=== PATIENT | female | born 1990 | race Caucasian/White ===

== ENCOUNTER 2021-04-20 11:02 | Outpatient (CLI) | payer OTHER, SELFPAY ==
--- NOTE | ~2021-04-20 | XR_ITS ---
EXAMINATION: XR hysterosalpingogram DATE: 04/20/2021 14:40 PRE SCHOOL MANAGER INDICATION: Infertility TECHNIQUE: Fluoroscopy was provided for a hysterosalpingogram performed by Dr. Mercado. FINDINGS: Initial images are unremarkable. Morphology of the uterus is grossly unremarkable. There is normal intraluminal morphology of the uterus. The fallopian tubes are normal in appearance and are widely patent, with free spill into the peritoneal cavity from both sides. IMPRESSION: 1. Normal hysterosalpingogram. The uterus demonstrates normal intraluminal morphology and both fall opian tubes are patent. Reviewed, dictated and finalized at location A. SCHOOL MANAGER IMPRESSION: 1. Normal hysterosalpingogram. The uterus demonstrates normal intraluminal mo rphology and both fallopian tubes are patent.
== END 2021-04-20 11:03 | disposition home or self-care (01) ==
LOC: ANHIMG 11:06
PROVIDERS: PCP Pediatrics; Visit Provider Obstetrics & Gynecology
DX: N97.9 Female infertility, unspecified (principal)
CPT/HCPCS: 58340; 74740; Q9966

== ENCOUNTER 2022-02-12 07:29 | Inpatient (IN) | payer OTHER, SELFPAY ==
[2022-02-12] VITALS (105 sets, daily range): BP systolic 90–172; BP diastolic 58–114; PULSE 71–117; TEMP 36.4–37.2; O2SAT 97–100; BMI 32.5
--- NOTE | 2022-02-12 07:29 | LDADM ---
This patient, Lin Murphy, was admitted to Labor/Delivery/Recovery 107 on 02/12/22 at 07:29. Plans for labor, pain management and were discussed with patient. Patient/family oriented to hospital policies and general routines including ID bracelet, bed and alarms, visiting hours, pain management, procedures, bathroom and other care routines, personal items, smoking policy, room service/diet and guest tray routines, security routines, and visiting hours. Patient/Family are encouraged to report perceived risks to care and to ask questions if they do not understand what they are told or what they should do. See OBIX for further documentation.
--- NOTE | 2022-02-12 07:29 | OBADM ---
This patient, Lin Murphy, admitted to the OB room Labor/Delivery/Recovery 107 for observation. Patient/family oriented to hospital policies and general routines including ID bracelet, bed and alarms, visiting hours, pain management, procedures, bathroom and other care routines, personal items, smoking policy, room service/diet, and visiting hours. Patient/Family are encouraged to report perceived risks to care and to ask questions if they do not understand what they are told or what they should do.
[2022-02-12] MEDS: fentaNYL CITRATE INJ (*CRX) 100 MCG/2 ML VIAL 50 MCG IV PUSH (10:06)
[2022-02-12] MEDS: ONDANSETRON INJ 4 MG/2 ML VIAL IV PUSH (10:06)
[2022-02-12] MEDS: LACTATED RINGERS 1,000 ML 999 ML IV CONT (10:06)
[2022-02-12] MEDS: fentaNYL CITRATE INJ (*CRX) 100 MCG/2 ML VIAL IV PUSH (12:42)
[2022-02-12] MEDS: LACTATED RINGERS 1,000 ML 125 ML IV CONT ×2 (14:41→18:15)
--- NOTE | 2022-02-12 14:42 | P.PNAN_ITS ---
Anes - Eval Pre Procedure Procedure: labor pain management Date/Time: 02/12/22 14:42 Surgeon: liss aguilar Pre Op Diagnosis: contractions Patient Data Age: 31 Gender: F Height: 1.55 m Weight: 78 kg Last Vital Signs Pulse 83 02/12/22 10:15 BP 138/82 02/12/22 10:15 O2 Del Method Room Air 02/12/22 10:12 Allergies Allergy/AdvReac Type Severity Reaction Status Date / Time No Known Drug Allergies Allergy Unknown Unknown Verified 01/15/22 12:36 Home Medications Medication Instructions Recorded Confirmed Type prenat.vits,kylah,cqi-ungo-citlo 1 tablet PO DAILY 01/15/22 01/15/22 History Patient hx anesthesia problems: none Family hx anesthesia problems: none Results Review: All pre-operative results and documents have been reviewed as part of the pre-operative evaluation. [facility] Family History Family History Father S/P CABG x 3 Carrier of tuberculosis Grandparent Liver cancer Grandparent Diabetes mellitus Social History Social History Smoking status: Never smoker Alcohol intake: current Substance use: current Last use: last time october 2021 Spiritual care concerns: No Exam Day of Procedure 02/12/22 14:42
[2022-02-12 14:44] LABS: Basophils Percent Auto 0.4 % (0.2-1.2); Hematocrit 38.5 % (37.0-47.0); Hemoglobin 13.3 g/dL (12.0-15.0); Immature Granulocyte Absolute 0.05 K/mm3 (0.00-0.031); Immature Granulocyte Percent A 0.4 % (0-0.5); Lymphocytes Absolute Auto 0.86 K/mm3 (0.9-3.2); Lymphocytes Percent Auto 7.7 % (18.3-44.2); Mean Corpuscular HGB Conc 34.5 g/dl (32-36); Mean Corpuscular Hemoglobin 31.3 pg (26-34); Mean Corpuscular Volume 90.6 fl (80-100); Mean Platelet Volume 12.8 fl (7.4-10.4); Monocytes Absolute Auto 0.7 K/mm3 (0.1-0.6); Monocytes Percent Auto 5.9 % (2.6-8.5); Neutrophils Absolute Auto 9.5 K/mm3 (1.3-6.7); Neutrophils Percent Auto 85.6 % (45.5-73.1); Platelet Count Result 176 k/mm3 (150-375); Red Blood Count 4.25 M/mm3 (4.2-5.4); Red Cell Distribution Width 13.2 % (11.5-14.5); White Blood Count 11.1 K/mm3 (4.5-10.0)
[2022-02-12] MEDS: FAMOTIDINE 20 MG/2 ML VIAL IV PUSH (18:15)
[2022-02-12 18:35] LABS: Barbiturate Screen Urine Negative (Negative); Benzodiazepines Screen Urine Negative (Negative)
[2022-02-12 18:39] LABS: Amphetamine Screen Urine Negative (Negative); Cannabinoid Screen Urine Positive (Negative); Cocaine Screen Urine Negative (Negative); Methadone Screen Urine Negative (Negative); Opiate Screen Urine Negative (Negative); Phencyclidine Screen Urine Negative (Negative)
[2022-02-13] VITALS (92 sets, daily range): BP systolic 122–178; BP diastolic 60–129; PULSE 74–147; RESP 14–18; TEMP 36.6–37.4; O2SAT 90–99
[2022-02-13] MEDS: LACTATED RINGERS 1,000 ML 125 ML IV CONT (00:22)
[2022-02-13 06:32] LABS: Rapid Plasma Reagin Non-Reactive (NonReactive)
--- NOTE | 2022-02-13 06:43 | PM.IMHP ---
H&P: HPI History of Present Illness Date/Time: 02/13/22 06:43 Chief Complaint: Contractions Narrative: 31 y/o G1 at 40 3/7 weeks here with contractions. Labor was diagnosed. SROM around 1600 yesterday with thick meconium. GBS neg. Comfortable with epidural. Now pushing. complicated by +THC. Review of Systems Review of Systems: All systems reviewed & are unremarkable except as noted in HPI and below PMFSH Surgical History Surgical History History of appendectomy Family History Family History Father S/P CABG x 3 Carrier of tuberculosis Grandparent Liver cancer Grandparent Diabetes mellitus Social History Social History Smoking status: Current every day smoker Tobacco type: cigarettes Second hand tobacco smoke exposure: Yes Alcohol intake: current Substance use: current Last use: October 2021 Spiritual care concerns: No Meds Home Medications and Allergies Home Medications Medication Instructions Recorded Confirmed Type prenat.vits,kylah,tas-lvlb-izpzv 1 tablet PO DAILY 01/15/22 02/12/22 History Allergies Allergy/AdvReac Type Severity Reaction Status Date / Time No Known Drug Allergies Allergy Unknown Unknown Verified 01/15/22 12:36 Vital Signs Vital Signs - 24 hr 02/12/22 10:12 02/12/22 10:12 02/12/22 10:15 Temperature Pulse Rate 82 83 Blood Pressure 135/81 138/82 Pulse Oximetry Oxygen Delivery Room Air 02/12/22 14:53 02/12/22 14:54 02/12/22 14:56 Temperature Pulse Rate 95 86 Blood Pressure 158/99 H 157/88 H Pulse Oximetry 98 Oxygen Delivery 02/12/22 14:57 02/12/22 14:58 02/12/22 15:00 Temperature Pulse Rate 105 H 97 92 Blood Pressure 172/98 H 155/91 H 141/97 H Pulse Oximetry 99 Oxygen Delivery 02/12/22 15:02 02/12/22 15:05 02/12/22 15:06 Temperature Pulse Rate 89 83 83 Blood Pressure 139/79 135/69 138/80 Pulse Oximetry 97 99 Oxygen Delivery 02/12/22 15:09 02/12/22 15:11 02/12/22 15:12 Temperature Pulse Rate 85 88 98 Blood Pressure 132/71 125/77 130/87 Pulse Oximetry 99 Oxygen Delivery 02/12/22 15:13 02/12/22 15:14 02/12/22 15:16 Temperature 36.9 C Pulse Rate 84 87 Blood Pressure 127/70 130/75 Pulse Oximetry 99 Oxygen Delivery 02/12/22 15:18 02/12/22 15:21 02/12/22 15:23 Temperature Pulse Rate 94 106 H 95 Blood Pressure 131/68 142/90 H 111/78 Pulse Oximetry 99 Oxygen Delivery 02/12/22 15:24 02/12/22 15:26 02/12/22 15:27 Temperature Pulse Rate 94 86 Blood Pressure 131/86 148/73 H Pulse Oximetry 99 Oxygen Delivery 02/12/22 15:29 02/12/22 15:30 02/12/22 15:31 Temperature Pulse Rate 89 71 Blood Pressure 115/69 130/88 Pulse Oximetry 99 Oxygen Delivery 02/12/22 15:32 02/12/22 15:34 02/12/22 15:35 Temperature Pulse Rate 99 99 Blood Pressure 127/80 116/71 Pulse Oximetry 97 Oxygen Delivery 02/12/22 15:36 02/12/22 15:38 02/12/22 15:40 Temperature Pulse Rate 83 89 Blood Pressure 120/86 125/73 Pulse Oximetry 98 Oxygen Delivery 02/12/22 15:41 02/12/22 15:42 02/12/22 15:45 Temperature Pulse Rate 105 H 86 85 Blood Pressure 107/75 124/102 H 127/70 Pulse Oximetry 97 Oxygen Delivery 02/12/22 15:46 02/12/22 15:48 02/12/22 15:50 Temperature Pulse Rate 110 H 93 Blood Pressure 117/88 129/87 Pulse Oximetry 97 Oxygen Delivery 02/12/22 15:51 02/12/22 15:53 02/12/22 15:54 Temperature Pulse Rate 103 H 99 87 Blood Pressure 117/88 90/58 L 114/86 Pulse Oximetry Oxygen Delivery 02/12/22 15:55 02/12/22 15:56 02/12/22 15:58 Temperature Pulse Rate 97 85 Blood Pressure 127/77 131/81 Pulse Oximetry 98 Oxygen Delivery 02/12/22 16:00 02/12/22 16:01 02/12/22 16:03 Temperature Pul
[2022-02-13] MEDS: OXYTOCIN 30 UNITS/NS 500 ML 30 UNITS/500 ML BAG 999 UNITS IV CONT (09:19)
--- NOTE | 2022-02-13 09:23 | PM.OBPRVD ---
OB - Delivery Note Procedure Delivery date: 02/13/22 Induction method: None Delivery augmentation: Pitocin Delivery monitor: External FHT Route of delivery: Episiotomy description: None Laceration Description: None Quantitative Blood Loss (ml): 159 Anesthesia type: Epidural Disposition: Floor [place] Baby Date of : 02/13/22 Time of : 08:57 Weeks of gestation at delivery: 40 Weight (pounds): 7 Weight (ounces): 5 presentation: vertex position: Right Occiput Posterior Placenta delivery description: Spontaneous Cord Vessel Description: 3 Vessels score one minute: 8 score five minutes: 9
[2022-02-13] MEDS: OXYTOCIN 30 UNITS/NS 500 ML 30 UNITS/500 ML BAG 125 UNITS IV CONT (09:49)
[2022-02-13] MEDS: IBUPROFEN 600 MG TABLET PO ×2 (10:32→18:28)
[2022-02-13] MEDS: ACETAMINOPHEN 325 MG TABLET 650 MG PO (10:32)
--- NOTE | 2022-02-13 13:44 | PC.NURSE ---
1210 - Introductions were made, then consulted with patient to assess needs related to . Mother led the conversation with her?plans to feed?her and the?experience so far stating the infant latched without pain but felt weird . Resources provided for inpatient and outpatient services using a resource guide and mom/baby guide. Mother voiced understanding of information and will call if there is a request for assistance. Primary RN. was present during introduction.
--- NOTE | 2022-02-13 14:35 | PC.NURSE ---
[id number] Introductions were made, then consulted with patient to assess needs related to . Mother led the conversation with her experience feeding her so far. Mother works well with her with encouragement and education. Encouraged understanding of the benefits of skin to skin (unwrapping and placing vertically on her chest), responsive feeding and how to watch for early feeding signs, frequency of feeding on demand about every 8-12 times in 24 hours (every 2-3 hours), milk production, duration of feeding, signs of adequate intake/output and how to record on the feeding sheet. Reviewed positioning and ear, shoulder, hip alignment, supporting the breast, asymmetrical latch (off-center), and leading with the chin with a big open side gape. Infant latched optimally to the right breast in cross cradle position. Education given to mother of how to visualize suck/swallow ratios (1:1, 2:1 ratios heard) and listening for drinking at the breast. Infant was able to maintain latch without discomfort to mother for 25 min. Nipple care reviewed with optimal latch and good positioning. optimally latched to the left breast using football positioning and demonstrated appropriate suck swallow ratios (1:1, 2:1). Reviewed good handwashing when or touching the breast/nipples to prevent infection. Resources used to facilitate learning were used with the visual handouts/ tool/mom and baby guide. Mother voiced understanding of responsive feedings, stimulating with skin to skin, hand expressed colostrum, massage touch, talking to to encourage if it has been 2 - 2 1/2 hours since the start of the last , to call if does not latch, difficulty waking up or if there is discomfort with . Reported to the primary RN.
[2022-02-13] MEDS: ONDANSETRON INJ 4 MG/2 ML VIAL IV PUSH (16:53)
[2022-02-14 04:00] VITALS: BP 138/89; PULSE 87; RESP 18; TEMP 37.1
[2022-02-14] MEDS: IBUPROFEN 600 MG TABLET PO ×3 (04:02→23:44)
[2022-02-14 04:35] LABS: Hemoglobin 10.6 g/dL (12.0-15.0)
--- NOTE | 2022-02-14 07:45 | PM.OBPNVD ---
OB - PN: Subj Subjective Date/time seen: 02/14/22 07:45 Patient comments: no complaints and pain well controlled baby status: doing well OB - PN: Obj Data Labs CBC & Chem 7: 02/14/22 04:06 Labs: Laboratory Results - last 24 hr 02/14/22 04:06 Hgb 10.6 L Hct 31.0 L OB - PN A/P Plan day: 1 Plan: routine care Time Spent With Patient Time: Total time spent is greater than 50% in coordination of care (as documented) at patient's floor/unit and/or counseling patient: Time with patient: less than 15 minutes
--- NOTE | 2022-02-14 08:21 | WPDANLDPN2 ---
Anes-Prog Note L&D Date/Time: 02/14/22 08:21 Comfortable throughout: labor and delivery Neuraxial method: epidural Epidural/Spinal procedure site: clean & non-tender Neuro status: Neuro function grossly intact. Cardiovascular status: normal Respiratory status: normal Airway patency: baseline Mental status: baseline Post-Op hydration status: normal Vital Signs: Last Vital Signs Temp 98.7 F 02/14/22 04:00 Pulse 87 02/14/22 04:00 Resp 18 02/14/22 04:00 BP 138/89 02/14/22 04:00 Pulse Ox 99 02/13/22 16:35 O2 Del Method Room Air 02/13/22 19:57 Pain score (VAS): 0 I/O: Intake & Output 02/13/22 02/14/22 02/14/22 23:59 07:59 15:59 Intake Total 640 Balance 640 Post-procedural complaints: none Patient feedback: Patient satisfied with anesthetic care. pt sleeping. spoke with at bedside (was present during delivery and throughout stay) states pt was comfortable throughout. denied any complications or concerns.
[2022-02-14 09:30] VITALS: PULSE 74; RESP 16; O2SAT 100
[2022-02-14 09:39] VITALS: BP 134/83; PULSE 74; RESP 16; TEMP 36.2; O2SAT 100
[2022-02-14] MEDS: WITCH HAZEL 40 PADS 1 PAD TOPICAL (09:45)
[2022-02-14] MEDS: DOCUSATE SODIUM 100 MG CAPSULE PO (09:45)
[2022-02-14] MEDS: MULTIVIT/MIN/PREN/FOL AC/IRON TABLET 1 TAB PO (09:45)
--- NOTE | 2022-02-14 12:38 | PC.NURSE ---
[id number] Consulted with patient to assess needs related to . Mother led conversation with her experience with feeding baby so far and states she had a latch last night that was pinching but she allowed to feed anyway. Reminded mother of stimulating to wake to breastfeed and other works well with her with encouragement. Reviewed working with infant, breast, nipples and how to protect the nipples with an optimal deep latch, good positioning, and good hand washing. Encouraged understanding the benefits of skin to skin, responding to feeding cues, frequencies of feeding 8-12 times in 24 hours (approximately 2-3 hours), duration of feedings (on demand swallowing and to detach if there is pain), milk production, intake/output feeding sheet and signs of adequate intake encouraging swallowing at the breast. Reviewed positioning and alignment, supporting breast, off-centered (asymmetrical latch) and leading with the chin with big open wide gape. Infant is demonstrating tongue sucking and mother has edema in her breast today. is unable to optimally latch and demonstrates minimal efforts to open wide to attempt latching on the left breast. Mother demonstrates hand expression to encourage infant to breastfeed. latched optimally to the right breast in cross cradle position using the sandwich hold. Education given to mother of how to visualize suck/swallow ratios and listening for drinking at the breast. was able to maintain latch without discomfort to mother. Reminded mother how and when to detach from her breast. Nipple care reviewed with optimal latch and good positioning, and to have clean hands when touching the nipple/breast. Resources used to facilitate learning were used from the tool. Mother voiced understanding of the education shared, calling for assistance if the does not latch or if there is discomfort with . Reported to the primary RN.
[2022-02-14 19:15] VITALS: BP 142/75; PULSE 66; RESP 18; TEMP 37
[2022-02-15] MEDS: IBUPROFEN 600 MG TABLET PO (05:24)
[2022-02-15 07:40] VITALS: BP 133/88; PULSE 75; RESP 16; TEMP 36.9; O2SAT 100
[2022-02-15] MEDS: MULTIVIT/MIN/PREN/FOL AC/IRON TABLET 1 TAB PO (08:08)
[2022-02-15] MEDS: ACETAMINOPHEN 325 MG TABLET 650 MG PO (08:08)
[2022-02-15] MEDS: DOCUSATE SODIUM 100 MG CAPSULE PO (08:08)
--- NOTE | 2022-02-15 10:00 | P.PNOB_ITS ---
OB - PN: Subj Subjective Date/time seen: 02/15/22 10:00 Patient comments: no complaints and pain well controlled baby status: doing well OB - PN: Obj Data Labs CBC & Chem 7: 02/14/22 04:06 OB - PN A/P Plan day: 2 Plan: routine care, discharge home and follow up 6 weeks Time Spent With Patient Time: Total time spent is greater than 50% in coordination of care (as documented) at patient's floor/unit and/or counseling patient: Time with patient: less than 15 minutes Exam 2 Const: General: cooperative and healthy appearing Cardio: Rate: regular rate Rhythm: regular rhythm Heart sounds: S1 normal heart sound present and S2 normal heart sound present GI: Inspection: normal to inspection, no large pannus and other ( fundus firm below the umbilicus) : Speculum Exam - Cervix: Other cervical findings present ( bleeding minimal)
--- NOTE | 2022-02-15 10:02 | P.DS_ITS ---
DS: Admitting Diagnosis Discharge Date 02/15/2022 Admitting Diagnosis term DS: Discharge Diagnosis Discharge Diagnosis (1) Term : Code(s): Z34.90 - Encounter for supervision of normal , unspecified, unspecified trimester Status: Acute DS: Summary Hospital Course Reason for hospitalization: patient was admitted in active labor Hospital Course: patient was admitted at term in active labor. She underwent spontaneous vaginal delivery which was unremarkable. Her hospital course was unremarkable. She remained afebrile. She was up, ambulating, breast-feeding, voiding without difficulty, generally without complaints. Time Spent with Patient Time attestation: Total time spent providing and/or coordinating discharge services: Discharge Plan Discharge Attending physician on discharge: Cristino Wade Discharging Clinician: Cristino Wade Patient Disposition: Home, Self-Care Activity: may shower and pelvic rest Diet: heart healthy Wound Care Instructions: follow printed instructions Patient Instructions: Antibiotic Form Stand Alone Forms: General Discharge Information Follow-up/Referrals: Cristino Wade MD [Physician] - Discharge Medications: Continued #2 Tablet 1 tablet PO DAILY Date of admission: 02/12/22 07:29 Primary Care Provider: PHYSICIAN,SENIOR APPLICATIONS DEVELOPER Admitting Provider: Cristino Wade Attending physician on admission: Cristino Wade Condition: Stable
--- NOTE | 2022-02-15 11:35 | PC.NURSE ---
Patient viewed the discharge video Mother & Baby Care, The First Two Weeks . Patient was given the opportunity and encouraged to ask questions. Patient verbalized understanding of information shared and has been given the mother/baby guide for home reference.
[2022-02-16 11:14] VITALS: BP 155/88; PULSE 69; RESP 18; TEMP 37.1; O2SAT 99
== END 2022-02-15 12:29 | disposition home or self-care (01) | DRG 807 ==
LOC: ANHLDR 14:36 → ANHOB2 02-13 11:59
PROVIDERS: Admitting Provider Obstetrics & Gynecology; Visit Provider Obstetrics & Gynecology
DX: O77.0 Labor and delivery complicated by meconium in amniotic fluid (principal); Z37.0 Single live birth; O99.334 Smoking (tobacco) complicating childbirth; F17.210 Nicotine dependence, cigarettes, uncomplicated; O13.4 Gestational [pregnancy-induced] hypertension without significant proteinuria, complicating childbirth; O76 Abnormality in fetal heart rate and rhythm complicating labor and delivery; Z3A.40 40 weeks gestation of pregnancy; Z90.49 Acquired absence of other specified parts of digestive tract
CPT/HCPCS: 36415; 80307; 85014; 85018; 85025; 86592; 86850; 86900; 86901; A9270; J2405; J2590; J2795; J3010; J7120

== ENCOUNTER 2022-02-19 12:09 | Outpatient (RCR) | payer OTHER, SELFPAY ==
--- NOTE | 2022-02-19 13:57 | PC.NURSE ---
In- 1209 Out- 1309 Reason for visit: latch issues History: Mother delivered on 02/13/2022 vaginally after SROM and augmentation with Pitocin. THC + on admission with all other testing negative. Parents state that they breastfeed 8-12 times in 24 hours. Infant History: Female born at 40.3/7 EGA. Physical assessment doesn't present with any feeding challenges. has had 9 wet diapers and 3 yellow stools in the last 24 hours. The parents are puzzled about the not having a stool since 1800 02/18 and were instructed to call their ICP if their did not stool in 24-28 hours. Observations: Mother leans over to latch without assuring infant is close to her body for the most optimal latch. There is a blister on the right nipple that makes latching painful. Mother states she is still having difficulty latching infant to the left breast. Mother was encouraged to sit back comfortably, position at nipple level, wait for a big, wide open, then latch deeply. Parents were encouraged to support the effective latch. Reviewed supportive tips for the Father of baby to assist with an optimal experience for mother and infant. Mother effectively breastfed on the right breast using cross cradle positioning with tenderness at first, then once the milk letdown the discomfort subsided. Infant demonstrated 1:1 suck/ swallow ratios. To encourage to the left breast we practiced the side-lying position. was able to self latch with 1:1 suck/swallow ratios without pain/ discomfort to the mother. Mother describes firm, breast this morning until after she pumped, then there has been milk flow since. She states, It felt like something let loose . We reviewed engorgement prevention and treatment. After effectively breastfed until self detach, then we reviewed and practiced the football position on the right breast. burps after eating with small spit up of human milk and demonstrates being content after . With improving the alignment, positioning, and not holding the breast up but supporting nipple to nose, mother was able to breastfeed without discomfort. Mother voiced understanding of when to call ICP, her provider or a consult for questions or concerns. weight: 3320g Lowest weight: 3050g Last weight: 7-[address] Alcantar's office today Pre-feed weight:3146g Post-feed weight: 3203g Plan of Care: Mother plans to practice the new positions, supporting close to her body with a big, open, wide gape for a deep effective breastfeed. Follow up plans: Parents voiced understanding of when to call for assistance.
== END 2022-05-20 23:59 | disposition home or self-care (01) ==
LOC: ANHOBOP 12:09
PROVIDERS: Visit Provider Pediatrics
DX: Z39.1 Encounter for care and examination of lactating mother (principal)
CPT/HCPCS: 99212; G0463

== ENCOUNTER 2023-07-29 15:39 | Outpatient (CLI) | payer OTHER, SELFPAY ==
--- NOTE | ~2023-07-29 | US_ITS ---
Pelvic ultrasound. Clinical History: Irregular cycles Technique: Realtime transabdominal and transvaginal scanning of the pelvis was performed. Color flow Doppler and Doppler spectral analysis were performed. Findings: The uterus is retroverted. The endometrial stripe has a thickness of 3 mm. No focal mass i s identified. The right ovary measures 2.9 x 1.7 x 2.0 cm. Multiple follicular right ovarian cysts are present, lar gest measuring 2.1 cm in diameter. The left ovary measures 2.6 x 1.4 x 1.3 cm. No significant left ovarian or adnexal mass is seen. There is trace free fluid in the cul de sac. Impression: No significant abnormality seen. Reviewed, dictated and finalized at location . IFFS Impression: No significant abnormality seen.
== END 2023-07-29 15:40 | disposition home or self-care (01) ==
LOC: ANHIMG 15:42
PROVIDERS: Visit Provider Obstetrics & Gynecology
DX: N92.6 Irregular menstruation, unspecified (principal)
CPT/HCPCS: 76830; 76856